=== PATIENT | female | born 1935 | race American Indian/Alaskan Native ===

== ENCOUNTER → 2024-11-05 | Outpatient (CLI) | payer MEDICARE, SELFPAY ==
--- NOTE | 2024-11-05 08:12 | XR_ITS ---
Examination: Mandible series 5 views TECHNIQUE: Scott lateral, right and left sagittal oblique L mandible series 5 views Date and time: November 05, 2024 0833 hours INDICATIONS: Palpable lump left side of the mandible 2 weeks. FINDINGS: No fracture. No cortical bone destruction Consider CT maxillofacial with intravenous contrast follow-up IMPRESSION: No fracture or cortical bone destruction Consider follow-up CT mandible with intravenous contrast
== END | disposition home or self-care (01) ==
LOC: SDIM 07:59
PROVIDERS: PCP Physician Assistant; Referring Provider Physician Assistant; Visit Provider Physician Assistant
DX: M27.8 Other specified diseases of jaws (principal)
CPT/HCPCS: 70110